=== PATIENT | male | born 1980 ===

== ENCOUNTER 2022-02-13 19:30 | Emergency (ER) | payer MEDICARE ==
--- NOTE | 2022-02-13 21:03 | Emergency Department Report ---
HPI - General Chief Complaint: Psych Time Seen by Provider: 02/13/22 20:25 - HPI HPI: Room 15 The patient is a 41-year-old male present with chief complaint of auditory hallucinations. Patient has a history of schizoaffective disorder and states he has been without his psych medications for some time. Patient states for the past 2 to 3 days he has had auditory hallucinations and agitation. When asked what the voices state the patient says "they do not really say anything." Patient denies suicidal or homicidal ideation. Patient denies visual hallucination ED Past Medical Hx - Past Medical History Hx Psychiatric Treatment: Yes (Schizoaffective disorder, depression) - Surgical History Past Surgical History?: No - Family History Family history: no significant - Social History Smoking Status: Current Every Day Smoker (1 pack/day) Substance Use Type: Methamphetamines, Other (Opiates) ED Review of Systems ROS: Stated complaint: HEARING VOICES Other details as noted in HPI Constitutional: no symptoms reported Eyes: denies: eye pain ENT: denies: throat pain Respiratory: no symptoms reported Cardiovascular: denies: chest pain Endocrine: no symptoms reported Gastrointestinal: denies: abdominal pain Genitourinary: denies: dysuria Musculoskeletal: denies: back pain Psychiatric: auditory hallucinations. denies: visual hallucinations, homicidal thoughts, suicidal thoughts Physical Exam - Physical Exam Vital Signs: Vital Signs 02/13/22 19:50 Temperature 97 F L Pulse Rate 89 Respiratory 18 Rate Blood Pressure 131/90 [Left] O2 Sat by Pulse 98 Oximetry Physical Exam: GENERAL: The patient is well-developed well-nourished male lying on chair not appearing to be in acute distress. [] HEENT: Normocephalic. Atraumatic. Extraocular motions are intact. Patient has moist mucous membranes. NECK: Supple. Trachea midline CHEST/LUNGS: Clear to auscultation. There is no respiratory distress noted. HEART/CARDIOVASCULAR: Regular. There is no tachycardia. There is no gallop rub or murmur. ABDOMEN: Abdomen is soft, nontender. Patient has normal bowel sounds. There is no abdominal distention. SKIN: There is no rash. There is no edema. There is no diaphoresis. NEURO: The patient is awake, alert, and oriented. The patient is cooperative. The patient has no focal neurologic deficits. The patient has normal speech. GCS 15 MUSCULOSKELETAL: There is no evidence of acute injury. ED Course Vital Signs 02/13/22 19:50 Temperature 97 F L Pulse Rate 89 Respiratory 18 Rate Blood Pressure 131/90 [Left] O2 Sat by Pulse 98 Oximetry ED Medical Decision Making - Lab Data Result diagrams: 02/13/22 21:00 02/13/22 21:00 Laboratory Tests 02/13/22 02/13/22 02/13/22 21:00 21:00 21:00 WBC 9.0 RBC 4.52 Hgb 14.1 Hct 38.6 MCV 85 MCH 31 MCHC 37 H RDW 14.5 Plt Count 326 Lymph % (Auto) 31.2 York % (Auto) 8.6 H Eos % (Auto) 1.9 Baso % (Auto) 1.1 Lymph # (Auto) 2.8 York # (Auto) 0.8 Eos # (Auto) 0.2 Baso # (Auto) 0.1 Seg Neutrophils % 57.2 Seg Neutrophils # 5.1 Sodium Potassium Chloride Carbon Dioxide Anion Gap BUN Creatinine Estimated GFR BUN/Creatinine Ratio Glucose Calcium Total Bilirubin AST ALT Alkaline Phosphatase Total Protein Albumin Albumin/Globulin Ratio Salicylates < 0.3 L Acetaminophen 5.0 L Plasma/Serum Alcohol 02/13/22 02/13/22 21:00 21:00 WBC RBC Hgb Hct MCV MCH MCHC RDW Plt Count Lymph % (Auto) York % (Auto) Eos % (Auto) Baso % (Auto) Lymph # (Auto) York # (Auto) Eos # (Auto) Baso # (Auto) Seg Neutrophils % Seg Neutrophils # Sodium 144 Potassium 4.4 Chloride 105.8 Carbon Dioxide 26 Anion Gap 17 BUN 17 Creatinine 0.8 Estimated GFR > 60 BUN/Creatinine Ratio 21 Glucose 100 Calcium 9.4 Total Bilirubin 0.50 AST 26 ALT 41 Alkaline Phosphatase 123 Total Protein 7.1 Albumin 4.0 Albumin/Globulin Ratio 1.3 Salicylates Acetaminophen Plasma/Serum Alcohol < 0.01 - Differential Diagnosis Schizoaffective disorder, auditory hallucination Critical care attestation.: If time is entered above; I have spent that time in minutes in the direct care of this critically ill patient, excluding procedure time. ED Disposition Clinical Impression: Auditory hallucinations Disposition: 30 STILL A PATIENT Is pt being admited?: No Does the pt Need Aspirin: No Condition: Stable Referrals: VON ANGULO MD [Primary Care Provider] - 3-5 Days Time of Disposition: 22:32 (Awaiting eval)
[2022-02-13 21:13] LABS: Basophils # (Auto) 0.1 K/mm3 (0.0-0.1); Basophils % (Auto) 1.1 % (0.0-1.8); Eosinophils # (Auto) 0.2 K/mm3 (0.0-0.4); Eosinophils % (Auto) 1.9 % (0.0-4.3); Lymphocytes # (Auto) 2.8 K/mm3 (1.2-5.4); Lymphocytes % (Auto) 31.2 % (13.4-35.0); Mean Corpuscular HGB Conc 37 % (32-34); Mean Corpuscular Volume 85 fl (84-94); Monocytes # (Auto) 0.8 K/mm3 (0.0-0.8); Monocytes % (Auto) 8.6 % (0.0-7.3); Platelet Count 326 K/mm3 (140-440); Red Blood Count 4.52 M/mm3 (3.65-5.03); Red Cell Distribution Width 14.5 % (13.2-15.2)
[2022-02-13 21:15] LABS: Hematocrit 38.6 % (35.5-45.6); Hemoglobin 14.1 gm/dl (11.8-15.2)
[2022-02-13 21:33] LABS: Alanine Aminotransferase 41 units/L (7-56); BUN/Creatinine Ratio 21; Blood Urea Nitrogen 17 mg/dL (9-20); Calcium 9.4 mg/dL (8.4-10.2); Hemolysis Index 11
[2022-02-14 07:39] LABS: Mucus,Urine 3+ /HPF
[2022-02-14 07:44] LABS: Benzodiazepines Screen,Urine Negative; Cannabinoid Screen,Urine Negative; Cocaine Screen,Urine Negative; Methadone Screen,Urine Negative; Opiate Screen,Urine Negative
[2022-02-14 07:55] LABS: Color,Urine Dark Yellow (Yellow)
[2022-02-14 08:07] LABS: Amphetamine Screen,Urine Positive
[2022-02-14 09:24] VITALS: BP 133/74
--- NOTE | 2022-02-14 11:14 | Consultation ---
History of Present Illness - Reason for Consult Consult date: 02/14/22 Reason for consult: mental health evaluation - History of Present Psychiatric Illness ED NOTE: The patient is a 41-year-old male present with chief complaint of auditory hallucinations. Patient has a history of schizoaffective disorder and states he has been without his psych medications for some time. Patient states for the past 2 to 3 days he has had auditory hallucinations and agitation. When asked what the voices state the patient says "they do not really say anything." Patient denies suicidal or homicidal ideation. Patient denies visual hallucination. The patient is a 41 year-old male with history of schizophrenia and bipolar who presented to the ED with complaints of auditory hallucinations. The patient was seen today. The patient said he came to the ED to get his medications. He said he is followed by a psychiatrist, however he lost his scripts. The patient reports history of opioid abuse and said he last used meth 3 days ago and opioid 1 week ago. He endorses being depressed rated 7/10. He reports having intermittent non-commanding auditory hallucinations, however he did not tell us what he was hearing. He denies visual hallucinations. PAST PSYCHIATRIC HISTORY: Diagnoses: Schizophrenia, bipolar Suicide attempts or Self-harm behavior: Denies Prior psychiatric hospitalizations: Yes Substance Abuse history: opioids, meth Previous psychiatric medications tried: Zyprexa, wellbutrin, paxil Outpatient treatment: Followed by psychiatrist PAST MEDICAL HISTORY: None reported Family Psychiatric History: None reported or documented SOCIAL HISTORY Marital Status: Single Living Arrangements: Homeless Employment Status: SSI - unemployed Access to guns/weapons: Denies Education: 12th grade History of Abuse: No Legal History: Unknown REVIEW OF SYSTEMS Constitutional: Negative for weight loss ENT: Negative for stridor Respiratory: Negative for cough or hemoptysis All other systems reviewed and are negative MENTAL STATUS EXAMINATION General Appearance and Behavior: Age appropriate, good hygiene, wearing appropriate clothes, cooperative Cooperation: cooperative Psychomotor Behavior: Normal Mood: depressed Affect and affective range:congruent Thought Process:Goal directed Thought Content: Reality oriented Speech: Normal Intellectual Functioning: Average Suicidal Ideation: Denies Homicidal Ideation: Denies Hallucination: Auditory hallucinations, non-commanding Impulse Control:Limited Insight and Judgment: limited insight and poor judgment Memory: Intact Attention:Attentive Orientation: Alert and oriented Diagnoses: (1) Hx of Schizophrenia (2) Polysubstance abuse Treatment Plan: Continuing home meds Patient should be compliant with medications and not to use drugs and not to drink alcohol. PSYCHOTHERAPY: Supportive psychotherapy provided MEDICAL: Per primary team DELIRIUM PRECAUTIONS: Please re-orient patient frequently, keep lights on during the day, and minimize benzodiazepines and opiates as these medications could worsen patient's confusion. MACHINE DESIGNER: Per medical team DISPOSITION: Do not recommend acute inpatient psychiatric hospitalization at this time. The noodle press operator will provide patient with psychiatric outpatient resources. FOLLOW-UP: Will sign off. Thank you for the consult. Please contact with any questions and/or concerns. Case staffed with Dr. Jones Medications and Allergies Allergies Allergy/AdvReac Type Severity Reaction Status Date / Time No Known Allergies Allergy Verified 02/13/22 19:52 Home Medications Medication Instructions Recorded Confirmed Last Taken Type OLANzapine [ZyPREXA] 10 mg PO DAILY 30 Days #30 tablet 02/14/22 Unknown Rx PARoxetine [Paxil] 20 mg PO DAILY 30 Days #30 02/14/22 Unknown Rx buPROPion XL [Wellbutrin Xl] 150 mg PO QAM 30 Days #30 02/14/22 Unknown Rx Mental Status Exam - Vital signs Last Vital Signs Temp 98.0 F 02/14/22 09:23 Pulse 87 02/14/22 09:23 Resp 18 02/14/22 09:23 BP 133/74 02/14/22 09:23 Pulse Ox 99 02/14/22 09:24 Results Result Diagrams: 02/13/22 21:00 02/13/22 21:00 Abnormal lab results 02/13/22 02/13/22 02/13/22 Range/Units 21:00 21:00 21:00 MCHC 37 H (32-34) % Rhea % (Auto) 8.6 H (0.0-7.3) % Urine WBC (Auto) (0.0-6.0) /HPF Salicylates < 0.3 L (2.8-20.0) mg/dL Acetaminophen 5.0 L (10.0-30.0) ug/mL 02/14/22 Range/Units 06:54 MCHC (32-34) % Rhea % (Auto) (0.0-7.3) % Urine WBC (Auto) 10.0 H (0.0-6.0) /HPF Salicylates (2.8-20.0) mg/dL Acetaminophen (10.0-30.0) ug/mL All other labs normal.
== END 2022-02-14 13:53 | disposition home or self-care (01) ==
LOC: ED 19:30
DX: F20.9 Schizophrenia, unspecified (principal); F32.9 Major depressive disorder, single episode, unspecified; Z20.822 Contact with and (suspected) exposure to COVID-19
CPT/HCPCS: 36415; 80053; 80307; 81001; 85025; 87086; 99284; U0003; 80320; G0480

== ENCOUNTER 2022-02-14 17:59 | Emergency (ER) | payer MEDICARE | END 2022-02-14 21:35 | disposition left against medical advice (07) | LOC: ED 17:59 | DX: M79.671 Pain in right foot (principal); Z53.21 Procedure and treatment not carried out due to patient leaving prior to being seen by health care provider ==

== ENCOUNTER 2022-02-15 07:41 | Emergency (ER) | payer MEDICARE ==
--- NOTE | 2022-02-15 09:48 | Emergency Department Report ---
ED General Adult HPI - General Chief complaint: Psych Stated complaint: SI PUI?: No Time Seen by Provider: 02/15/22 09:05 Source: patient Mode of arrival: Ambulatory Limitations: No Limitations - History of Present Illness Initial comments: This is a 41-year-old male who is of clear that he has a schizo-affective disorder and also depression came to the emergency room today with concerns of auditory hallucination which according to patient the voices just repeating what he saying also mocking him for the past 1 week. Patient denies any visual hallucination or tactile hallucination. Patient said that he also felt very jerica tated and also has a suicidal ideation today. Patient stated today he came very close of walking into traffic to get himself hit by a car. Patient denies any access to weapons at home. Patient denies any self attempt of suicide in the past. Patient current denies any discomfort denies fever chill night sweat dizziness blurred vision lightheadedness headache tinnitus ear pain runny nose sore throat loss of taste loss of smell chest pain palpitation short breath cough abdominal pain nausea vomiting diarrhea constipation joint pain muscle pain new rash and heat or cold intolerance. Severity scale (0 -10): 0 - Related Data Previous Rx's Medication Instructions Recorded Last Taken Type OLANzapine [ZyPREXA] 10 mg PO DAILY 30 Days #30 tablet 02/14/22 Unknown Rx PARoxetine [Paxil] 20 mg PO DAILY 30 Days #30 02/14/22 Unknown Rx buPROPion XL [Wellbutrin Xl] 150 mg PO QAM 30 Days #30 02/14/22 Unknown Rx Allergies Allergy/AdvReac Type Severity Reaction Status Date / Time No Known Allergies Allergy Verified 02/15/22 07:51 ED Review of Systems ROS: Stated complaint: SI Other details as noted in HPI Comment: All other systems reviewed and negative Constitutional: no symptoms reported, see HPI Eyes: as per HPI ENT: as per HPI Respiratory: no symptoms reported, see HPI Cardiovascular: as per HPI Endocrine: no symptoms reported, see HPI Gastrointestinal: as per HPI Genitourinary: as per HPI Musculoskeletal: as per HPI Skin: as per HPI Neurological: as per HPI Psychiatric: depression, auditory hallucinations, suicidal thoughts Hematological/Lymphatic: as per HPI ED Past Medical Hx - Past Medical History Previous Medical History?: Yes Hx Psychiatric Treatment: Yes (Schizoaffective disorder, depression) - Social History Smoking Status: Current Every Day Smoker (1 pack/day) Substance Use Type: Methamphetamines, Other (Opiates) - Medications Home Medications: Home Medications Medication Instructions Recorded Confirmed Last Taken Type OLANzapine [ZyPREXA] 10 mg PO DAILY 30 Days #30 tablet 02/14/22 Unknown Rx PARoxetine [Paxil] 20 mg PO DAILY 30 Days #30 02/14/22 Unknown Rx buPROPion XL [Wellbutrin Xl] 150 mg PO QAM 30 Days #30 02/14/22 Unknown Rx ED Physical Exam - General Limitations: No Limitations General appearance: alert, in no apparent distress - Head Head exam: Present: atraumatic, normocephalic, normal inspection - Eye Eye exam: Present: normal appearance, PERRL, EOMI Pupils: Present: normal accommodation - ENT ENT exam: Present: normal exam - Neck Neck exam: Present: normal inspection, full ROM - Respiratory Respiratory exam: Present: normal lung sounds bilaterally - Cardiovascular Cardiovascular Exam: Present: regular rate, normal rhythm, normal heart sounds - GI/Abdominal GI/Abdominal exam: Present: soft - Extremities Exam Extremities exam: Present: normal inspection, full ROM, normal capillary refill - Back Exam Back exam: Present: normal inspection, full ROM - Neurological Exam Neurological exam: Present: alert, oriented X3, CN II-XII intact, normal gait - Psychiatric Psychiatric exam: Present: depressed, anxious, suicidal ideation - Skin Skin exam: Present: normal color ED Course Vital Signs 02/15/22 02/15/22 02/15/22 07:44 09:49 14:32 Temperature 98.1 F 97.6 F Pulse Rate 98 H 89 Respiratory 18 18 18 Rate Blood Pressure 131/83 130/73 [Right] O2 Sat by Pulse 98 99 99 Oximetry 02/15/22 02/16/22 02/16/22 22:00 13:35 15:46 Temperature 98.3 F Pulse Rate 92 H Respiratory 18 18 Rate Blood Pressure 133/84 [Right] O2 Sat by Pulse 100 99 99 Oximetry ED Medical Decision Making - Lab Data Result diagrams: 02/15/22 09:55 02/15/22 09:55 - Medical Decision Making PATIENT WAS CLEARED YESTERDAY BY [facility] AND IT APPEARS LAST PROVIDER SAW THE PATIENT WAS DR. LAURA WHO LIKELY DISCHARGED THE PATIENT. Critical care attestation.: If time is entered above; I have spent that time in minutes in the direct care of this critically ill patient, excluding procedure time. ED Disposition Clinical Impression: Suicidal ideations, Auditory hallucinations Disposition: [address] [place] [address] Is pt being admited?: No Does the pt Need Aspirin: No Condition: Stable Referrals: PRIMARY CARE, [Primary Care Provider] - 3-5 Days Time of Disposition: 15:36
[2022-02-15 10:20] LABS: Hematocrit 41.8 % (35.5-45.6); Hemoglobin 14.5 gm/dl (11.8-15.2); Mean Corpuscular HGB Conc 35 % (32-34); Mean Corpuscular Volume 88 fl (84-94); Platelet Count 324 K/mm3 (140-440); Red Blood Count 4.77 M/mm3 (3.65-5.03); Red Cell Distribution Width 14.3 % (13.2-15.2)
[2022-02-15 10:41] LABS: Alanine Aminotransferase 44 units/L (7-56); Albumin 4.1 g/dL (3.9-5); Blood Urea Nitrogen 19 mg/dL (9-20); Calcium 9.3 mg/dL (8.4-10.2); Hemolysis Index 3
[2022-02-15 10:42] LABS: BUN/Creatinine Ratio 32
--- NOTE | 2022-02-15 11:10 | Consultation ---
History of Present Illness - Reason for Consult Consult date: 02/15/22 Reason for consult: suicidal ideation - History of Present Psychiatric Illness ED Note: This is a 41-year-old male who is of clear that he has a schizo- affective disorder and also depression came to the emergency room today with concerns of auditory hallucination which according to patient the voices just repeating what he saying also mocking him for the past 1 week. Patient denies any visual hallucination or tactile hallucination. Patient said that he also felt very agitated and also has a suicidal ideation today. Patient stated today he came very close of walking into traffic to get himself hit by a car. Patient denies any access to weapons at home. Patient denies any self attempt of suicide in the past. The patient was seen today. He continues to endorse depression with a plan "to walk into traffic." PAST PSYCHIATRIC HISTORY: Diagnoses: Schizophrenia, bipolar Suicide attempts or Self-harm behavior: Denies Prior psychiatric hospitalizations: Yes Substance Abuse history: opioids, meth Previous psychiatric medications tried: Zyprexa, wellbutrin, paxil Outpatient treatment: Followed by psychiatrist PAST MEDICAL HISTORY: None reported Family Psychiatric History: None reported or documented SOCIAL HISTORY Marital Status: Single Living Arrangements: Homeless Employment Status: SSI - unemployed Access to guns/weapons: Denies Education: 12th grade History of Abuse: No Legal History: Unknown REVIEW OF SYSTEMS Constitutional: Negative for weight loss ENT: Negative for stridor Respiratory: Negative for cough or hemoptysis All other systems reviewed and are negative MENTAL STATUS EXAMINATION General Appearance and Behavior: Age appropriate, good hygiene, wearing appropriate clothes, cooperative Cooperation: cooperative Psychomotor Behavior: Normal Mood: depressed Affect and affective range:congruent Thought Process:Goal directed Thought Content: suicidal/ hallucinations Speech: Normal Intellectual Functioning: Average Suicidal Ideation: Yes Homicidal Ideation: Denies Hallucination: Auditory hallucinations, commanding Impulse Control:Limited Insight and Judgment: limited insight and poor judgment Memory: Intact Attention:Attentive Orientation: Alert and oriented Diagnoses: (1) Hx of Schizophrenia (2) Polysubstance abuse Treatment Plan: 1013 Continuing home meds Zyprexa 10mg po Daily Paxil 20mg po daily Trazodone 50mg po qhs Patient should be compliant with medications and not to use drugs and not to drink alcohol. PSYCHOTHERAPY: Supportive psychotherapy provided MEDICAL: Per primary team DELIRIUM PRECAUTIONS: Please re-orient patient frequently, keep lights on during the day, and minimize benzodiazepines and opiates as these medications could worsen patient's confusion. RAILROAD OPERATOR: Per medical team DISPOSITION: Recommend acute inpatient psychiatric hospitalization at this time. FOLLOW-UP: Will follow. Thank you for the consult. Please contact with any questions and/or concerns. Case staffed with Dr. Jones Medications and Allergies Medications and Allergies Allergies Allergy/AdvReac Type Severity Reaction Status Date / Time No Known Allergies Allergy Verified 02/15/22 07:51 Home Medications Medication Instructions Recorded Confirmed Last Taken Type OLANzapine [ZyPREXA] 10 mg PO DAILY 30 Days #30 tablet 02/14/22 Unknown Rx PARoxetine [Paxil] 20 mg PO DAILY 30 Days #30 02/14/22 Unknown Rx buPROPion XL [Wellbutrin Xl] 150 mg PO QAM 30 Days #30 02/14/22 Unknown Rx Mental Status Exam - Vital signs Last Vital Signs Temp 98.1 F 02/15/22 07:44 Pulse 98 H 02/15/22 07:44 Resp 18 02/15/22 07:44 BP 131/83 02/15/22 07:44 Pulse Ox 98 02/15/22 07:44 Results Result Diagrams: 02/15/22 09:55 02/15/22 09:55 Abnormal lab results 02/15/22 02/15/22 02/15/22 Range/Units 09:55 09:55 09:55 MCHC 35 H (32-34) % Sodium 146 H (137-145) mmol/L Chloride 108.6 H (98-107) mmol/L Creatinine 0.6 L (0.8-1.3) mg/dL Salicylates < 0.3 L (2.8-20.0) mg/dL Acetaminophen (10.0-30.0) ug/mL 02/15/22 Range/Units 09:55 MCHC (32-34) % Sodium (137-145) mmol/L Chloride (98-107) mmol/L Creatinine (0.8-1.3) mg/dL Salicylates (2.8-20.0) mg/dL Acetaminophen 5.0 L (10.0-30.0) ug/mL All other labs normal.
[2022-02-15] MEDS ORDERED: PARoxetine 20 MG TAB PO SCH (12:00)
--- NOTE | 2022-02-16 07:10 | Event Note ---
Date: 02/16/22 Psych Obs Note S Pt is a 41yo M s/schizoaffective disorder p/w auditory hallucinations. He is calm, cooperative, He denies any complaints at this time. Chart reviewed. No overnight events reported O: VSS Pt is comfortable, well appearing, in no distress. Heambulates w/normal steady gait ; no focal neurological deficits A: 41yo M p/w psychosis. Psychiatry recommendation for inpatient admission noted. P: Continue with recommended psychiatric medical management, per psychiatry Await acceptance for admission to acute inpatient psychiatric unit
[2022-02-16] MEDS ORDERED: buPROPion XL 150 MG TAB PO SCH (10:00)
--- NOTE | 2022-02-16 10:28 | Progress Note ---
Subjective - Reason for Consult Consult date: 02/16/22 Reason for consult: SI - Chief Complaint Chief complaint: The patient was seen today. He says he is depressed, SI and hearing voices. He says he has no family here and only been in [place] for 2 weeks. The patient says he came here for work. He endorses using meth and opiates. He says he started having theses feelings over the last day or so. He says he's not had his meds. The patient says he was here a couple of days ago, but states he came back because he is still depressed and suicidal. REVIEW OF SYSTEMS Constitutional: Negative for weight loss ENT: Negative for stridor Respiratory: Negative for cough or hemoptysis All other systems reviewed and are negative MENTAL STATUS EXAMINATION General Appearance and Behavior: Age appropriate, good hygiene, wearing appropriate clothes, cooperative Cooperation: cooperative Psychomotor Behavior: Normal Mood: depressed Affect and affective range:congruent Thought Process:Goal directed Thought Content: Reality oriented Speech: Normal Intellectual Functioning: Average Suicidal Ideation: Yes Homicidal Ideation: Denies Hallucination: Auditory hallucinations Impulse Control:Limited Insight and Judgment: limited insight and poor judgment Memory: Intact Attention:Attentive Orientation: Alert and oriented Diagnoses: (1) Hx of Schizophrenia (2) Polysubstance abuse Treatment Plan: 1013 Continuing home meds Patient should be compliant with medications and not to use drugs and not to drink alcohol. PSYCHOTHERAPY: Supportive psychotherapy provided MEDICAL: Per primary team DELIRIUM PRECAUTIONS: Please re-orient patient frequently, keep lights on during the day, and minimize benzodiazepines and opiates as these medications could worsen patient's confusion. ROOM SERVICE WAITER: Per medical team DISPOSITION: Do not recommend acute inpatient psychiatric hospitalization at this time. The psychiatrist will provide patient with psychiatric outpatient resources. FOLLOW-UP: Will follow Thank you for the consult. Please contact with any questions and/or concerns. Case staffed with Dr. Jones Mental Status Exam - Vital signs Last Vital Signs Temp 97.6 F 02/15/22 09:49 Pulse 89 02/15/22 09:49 Resp 18 02/15/22 14:32 BP 130/73 02/15/22 09:49 Pulse Ox 100 02/15/22 22:00
[2022-02-16 10:32] LABS: Benzodiazepines Screen,Urine Negative; Cannabinoid Screen,Urine Negative; Cocaine Screen,Urine Negative; Methadone Screen,Urine Negative; Opiate Screen,Urine Negative
[2022-02-16 10:46] LABS: Amphetamine Screen,Urine Positive
[2022-02-16] MEDS ORDERED: buPROPion 75 MG TAB PO SCH (11:00)
[2022-02-16 13:36] VITALS: BP 133/84
[2022-02-16] MEDS ORDERED: GABAPENTIN 300 MG CAP PO SCH (14:00)
== END 2022-02-16 17:45 ==
LOC: ED 07:41
DX: R45.851 Suicidal ideations (principal); R44.0 Auditory hallucinations; F32.A Depression, unspecified; F17.200 Nicotine dependence, unspecified, uncomplicated; Z20.822 Contact with and (suspected) exposure to COVID-19
CPT/HCPCS: 36415; 80053; 80307; 85027; 99285; U0003; 80320; G0480